=== PATIENT | male | born 1960 | race Caucasian/White ===

== ENCOUNTER → 2016-12-05 | Outpatient (CLI) | payer OTHER, MEDICAID | LOC: CIMAGING 14:04 | PROVIDERS: ATTEND Internal Medicine Cardiovascular Disease | DX: I48.91 Unspecified atrial fibrillation (principal); I10 Essential (primary) hypertension; Q23.1 Congenital insufficiency of aortic valve; Z79.899 Other long term (current) drug therapy | CPT/HCPCS: 71020-PO ==

== ENCOUNTER → 2016-12-12 | Outpatient (CLI) | payer OTHER, MEDICAID | LOC: BHFA 10:00 | PROVIDERS: ATTEND Internal Medicine Cardiovascular Disease | DX: Q23.1 Congenital insufficiency of aortic valve (principal); I10 Essential (primary) hypertension; I48.91 Unspecified atrial fibrillation ==

== ENCOUNTER 2017-12-12 18:28 | Inpatient (IN) | payer OTHER, MEDICAID ==
[2017-12-12] MEDS ORDERED: NS 1,000 ML IV ONE (18:38)
[2017-12-12] MEDS ORDERED: ACETAMINOPHEN 500 MG TAB PO ONE (18:38)
--- NOTE | 2017-12-12 18:43 | EDPHY ---
H & P Stated Complaint: L AXILLA PAIN Time Seen by Provider: 12/12/17 18:35 HPI/ROS: HPI CHIEF COMPLAINT: Left armpit pain. HISTORY OF PRESENT ILLNESS: This patient very pleasant 57-year-old male, history of AFib and WPW, he presents emergency room by EMS from his private residence. 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 He was sitting down the working on a puzzle, he then began to developed sharp stabbing left axillary pain. The pain does not go down his arm. He has no chest pain or shortness of breath. The pain is located to the left axillary region and left triceps region. He denies any chest pain or pleuritic pain or shortness of breath. No nausea vomiting or diarrhea. The pain was rather severe so his mammography technologist called 911. Upon arrival to the emergency room is resting comfortably no acute distress does complain of some mild left upper arm axillary pain. Sharp stabbing. Past Medical History: AFib, WPW, hiatal hernia surgery, cognitive decline Past Surgical History: Hiatal hernia Social History: Denies drugs alcohol tobacco products. Family History: Noncontributory ROS REVIEW OF SYSTEMS: A comprehensive 10 point review of systems is otherwise negative aside from elements mentioned in the history of present illness. Exam Constitutional appears well nontoxic, triage nursing summary reviewed, vital signs reviewed, awake/alert. Eyes normal conjunctivae and sclera, EOMI, PERRLA. HENT normal inspection, atraumatic, moist mucus membranes, no epistaxis, neck supple/ no meningismus, no raccoon eyes. Respiratory clear to auscultation bilaterally, normal breath sounds, no respiratory distress, no wheezing. Cardiovascular chest wall: Nontender palpation over the chest wall, left axillary region, nontender palpation, no significant lymphadenopathy, left tricep nontender palpation, the the rate normal, regular rhythm, no murmur, no edema, distal pulses normal. Gastrointestinal soft, non-tender, no rebound, no guarding, normal bowel sounds, no distension, no pulsatile mass. Genitourinary no CVA tenderness. Musculoskeletal left upper extremity good radial pulse, good cap refill, no midline vertebral tenderness, full range of motion, no calf swelling, no tenderness of extremities, no meningismus, good pulses, neurovascularly intact. Skin pink, warm, & dry, no rash, skin atraumatic. Neurologic awake, alert and oriented x 3, AAOx3, moves all 4 extremities equally, motor intact, sensory intact, CN II-XII intact, normal cerebellar, normal vision, normal speech. Psychiatric normal mood/affect. Heme/Lymph/Immune no lymphadenopathy. 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 I do not think this is acute coronary syndrome or cardiac presentation given his symptoms. He has no chest pain or shortness of breath he is complaining of sharp stabbing pain to his axilla and left upper arm. It seems to be more IV nerve issue versus musculoskeletal. Re-evaluation: EKG interpretation by me on record in [facility] system. Impression time of EKG 1842, sinus rhythm rate of 66 left anterior fascicular block present. LVH present. Very similar to previous EKG in morphology dated 09/11/2016 X-ray of the chest and left shoulder reviewed. This shows a proximal humerus bony abnormality also there appears to be a left upper lobe nodule that is abnormal. This needs further evaluation and workup for cancer. 2113: This patient has left upper extremity bony abnormality. Additionally possible pulmonary lesions with cardiomegaly. Patient be admitted to the hospitalist service spoke with Dr. Donovan who agrees to admit this patient for further evaluation of this bony abnormality. Source: Patient, EMS - Medical/Surgical History Hx Asthma: No Hx Chronic Respiratory Disease: No Hx Diabetes: No Hx Cardiac Disease: Yes Hx Renal Disease: No Hx Cirrhosis: No Hx Alcoholism: No Hx HIV/AIDS: No Hx Splenectomy or Spleen Trauma: No Other PMH: broderick parkinson white/rheumatic heart disease/spina bifida - Social History Smoking Status: Never smoked Constitutional: Initial Vital Signs Temperature (C) 36.6 C 12/12/17 18:30 Heart Rate 72 12/12/17 18:30 Respiratory Rate 16 12/12/17 18:30 Blood Pressure 161/97 H 12/12/17 18:30 O2 Sat (%) 96 12/12/17 18:30 O2 Delivery Mode Room Air Allergies/Adverse Reactions: No Known Allergies Allergy (Unverified 08/11/14 09:16) Home Medications: Medication Instructions Recorded Amiodarone HCl [Pacerone (*)] 200 mg PO DAILY 12/12/17 Aspirin [Aspirin 81mg (*)] 81 mg PO HS 12/12/17 Calcium Polycarbophil [FIBERCON] 625 mg PO DAILY 12/12/17 Cholecalciferol Vit D3 [Vitamin D3 1,000 units PO DAILY 12/12/17 (*)] Cyanocobalamin [Vitamin B12 (*)] 1,000 mcg PO DAILY 12/12/17 Docusate Sodium [Colace 100 MG (*)] 100 mg PO HS 12/12/17 Fluticasone Nasal [Flonase Nasal 1 sprays NASAL BID 12/12/17 [place] (RX)] Losartan Potassium [Cozaar 50 mg 50 mg PO HS 12/12/17 (*)] [place]-3 Fatty Acids [Fish Oil 1000 3,000 mg PO DAILY 12/12/17 mg (*)] Simethicone [Mylicon 80 mg (OTC)] 160 mg PO TIDMEAL 12/12/17 Tobramycin/Dexamethasone [Tobradex 1 lexie OP LIN 12/12/17 Eye Ointment] Medical Decision Making - Data Points Laboratory Results: Laboratory Results 12/12/17 18:40 12/12/17 18:40 Medications Given: Acetaminophen (Tylenol) 650 mg PO Q4HRS PRN PRN Reason: Pain, Mild/Fever, Can Take PO Stop: 06/10/18 22:22 Last Admin: 12/13/17 21:33 Dose: 650 mg Amiodarone HCl (Amiodarone Hcl) 200 mg PO DAILY [place] Stop: 06/11/18 16:14 Last Admin: 12/13/17 16:43 Dose: 200 mg Aspirin (Aspirin) 81 mg PO HS [place] Stop: 06/11/18 20:59 Last Admin: 12/13/17 21:33 Dose: 81 mg Docusate Sodium (Colace) 100 mg PO HS [place] Stop: 06/11/18 20:59 Last Admin: 12/13/17 21:33 Dose: 100 mg Fluticasone Propionate (Flonase Nasal [place]) 1 sprays [place] BID [place] Stop: 06/11/18 20:59 Last Admin: 12/13/17 21:34 Dose: 1 spray Losartan Potassium (Cozaar) 50 mg PO HS [facility] Stop: 06/11/18 20:59 Last Admin: 12/13/17 21:32 Dose: 50 mg Simethicone (Mylicon) 160 mg PO TIDMEAL [place] Stop: 06/11/18 17:59 Last Admin: 12/13/17 18:21 Dose: 160 mg Discontinued Medications Acetaminophen (Tylenol) 1,000 mg PO EDNOW ONE Stop: 12/12/17 18:39 Last Admin: 12/12/17 18:58 Dose: 1,000 mg Sodium Chloride (Ns) 1,000 mls @ 0 mls/hr IV EDNOW ONE; Wide Open PRN Reason: Protocol Stop: 12/12/17 18:39 Last Admin: 12/12/17 18:58 Dose: 1,000 mls Departure - Departure Disposition: [facility] Acute Clinical Impression: Bone mass, Cardiomegaly, Pulmonary nodules Condition: Good
--- NOTE | 2017-12-12 18:46 | CPEKG ---
Heart Rate: 66 RR Interval: 909 P-R Interval: 180 QRSD Interval: 116 QT Interval: 472 QTC Interval: 495 P [place]: 14 QRS [place]: -51 T Wave [place]: 67 EKG Severity - ABNORMAL ECG - EKG Impression: SINUS RHYTHM EKG Impression: LEFT ANTERIOR FASCICULAR BLOCK EKG Impression: PROBABLE LEFT VENTRICULAR HYPERTROPHY Electronically Signed By: Bruno Chen 12-Dec-2017 23:13:41
[2017-12-12 18:51] LABS: PLATELET COUNT 176 10^3/uL (150-400)
[2017-12-12 19:00] LABS: INR 1.17 (0.83-1.16); PROTIME(PATIENT) 15.1 SEC (12.0-15.0)
[2017-12-12 19:18] LABS: CREATINE KINASE 121 IU/L (0-224)
[2017-12-12] MEDS ORDERED: HYDROmorphONE/DILAUDID 2 MG/ML INJ IVP PRN (22:23)
[2017-12-12] MEDS ORDERED: HYDROmorphONE/DILAUDID 2 MG TAB PO PRN (22:23)
[2017-12-12] MEDS ORDERED: ONDANSETRON DISINTEGRATING 4 MG TAB PO PRN (22:23)
[2017-12-12] MEDS ORDERED: ONDANSETRON 4 MG/2 ML VIAL IVP PRN (22:23)
[2017-12-12] MEDS ORDERED: IOPAMIDOL (ISOVUE-300) 100 ML BTL ONE (22:31)
--- NOTE | 2017-12-13 01:16 | PDGENHP ---
History and Physical - Chief Complaint L arm pain - History of Present Illness 57 yo M w/ cognitive dysfunction, WPW, and AF presents with L arm pain. Patient presents with his caregiver. He was working today and began to notice sharp L axillary pain. As a result he presented to the ED. Work-up was notable for L humeral mass. Patient is being admitted for pain control and further work-up. At the time of my evaluation he is comfortable after receiving pain medication. He has no prior history of malignancy. History Information - Allergies/Home Medication List Allergies/Adverse Reactions: No Known Allergies Allergy (Unverified 08/11/14 09:16) Home Medications: Amiodarone HCl [Pacerone (*)] 200 mg PO DAILY 12/12/17 [Last Taken 12/12/17] Aspirin [Aspirin 81mg (*)] 81 mg PO HS 12/12/17 [Last Taken 12/11/17] Calcium Polycarbophil [FIBERCON] 625 mg PO DAILY 12/12/17 [Last Taken 12/12/17] Cholecalciferol Vit D3 [Vitamin D3 (*)] 1,000 units PO DAILY 12/12/17 [Last Taken 12/12/17] Cyanocobalamin [Vitamin B12 (*)] 1,000 mcg PO DAILY 12/12/17 [Last Taken ] Docusate Sodium [Colace 100 MG (*)] 100 mg PO HS 12/12/17 [Last Taken 12/11/17] Fluticasone Nasal [Flonase Nasal [place] (RX)] 1 sprays NASAL BID 12/12/17 [Last Taken 12/12/17] Losartan Potassium [Cozaar 50 mg (*)] 50 mg PO HS 12/12/17 [Last Taken 12/11/17] [place]-3 Fatty Acids [Fish Oil 1000 mg (*)] 3,000 mg PO DAILY 12/12/17 [Last Taken 12/12/17] Simethicone [Mylicon 80 mg (OTC)] 160 mg PO TIDMEAL 12/12/17 [Last Taken ] Tobramycin/Dexamethasone [Tobradex Eye Ointment] 1 lexie OP LIN 12/12/17 [Last Taken 12/07/16] I have personally reviewed and updated: family history, medical history - Past Medical History Additional medical history: Cognitivie dysfunction, ?developmental delay. WPW. AF. Bicuspic AV - Family History Additional family history: Caregiver reports hx of multiple cardiac problems in the family - Social History Smoking Status: Never smoked Review of Systems Review of Systems: ROS: 10pt was reviewed & negative except for what was stated in HPI & below Physical Exam Physical Exam: Temp Pulse Resp BP Pulse Ox 37.0 C 67 19 120/74 97 12/13/17 00:06 12/13/17 00:06 12/13/17 00:06 12/13/17 00:06 12/13/17 00:06 Constitutional: no apparent distress, appears nourished Eyes: PERRL, anicteric sclera Ears, Nose, Mouth, Throat: no oral mucosal ulcers Cardiovascular: regular rate and rhythym, systolic murmur Respiratory: no respiratory distress, clear to auscultation Gastrointestinal: normoactive bowel sounds, soft, non-tender abdomen Skin: warm, normal color Musculoskeletal: full muscle strength, no muscle tenderness Neurologic: AAOx3, sensation intact bilaterally Psychiatric: interacting appropriately, not anxious Lab Data & Imaging Review 12/12/17 18:40 12/12/17 18:40 WBC 5.31 10^3/uL (3.80-9.50) 12/12/17 18:40 RBC 4.35 10^6/uL (4.40-6.38) L 12/12/17 18:40 Hgb 14.3 g/dL (13.7-17.5) 12/12/17 18:40 Hct 42.4 % (40.0-51.0) 12/12/17 18:40 MCV 97.5 fL (81.5-99.8) 12/12/17 18:40 MCH 32.9 pg (27.9-34.1) 12/12/17 18:40 MCHC 33.7 g/dL (32.4-36.7) 12/12/17 18:40 RDW 12.3 % (11.5-15.2) 12/12/17 18:40 Plt Count 176 10^3/uL (150-400) 12/12/17 18:40 MPV 10.4 fL (8.7-11.7) 12/12/17 18:40 Neut % (Auto) 63.1 % (39.3-74.2) 12/12/17 18:40 Lymph % (Auto) 24.9 % (15.0-45.0) 12/12/17 18:40 [place] % (Auto) 10.7 % (4.5-13.0) 12/12/17 18:40 Eos % (Auto) 0.0 % (0.6-7.6) L 12/12/17 18:40 Baso % (Auto) 1.1 % (0.3-1.7) 12/12/17 18:40 Nucleat RBC Rel Count 0.0 % (0.0-0.2) 12/12/17 18:40 Absolute Neuts (auto) 3.35 10^3/uL (1.70-6.50) 12/12/17 18:40 Absolute Lymphs (auto) 1.32 10^3/uL (1.00-3.00) 12/12/17 18:40 Absolute Monos (auto) 0.57 10^3/uL (0.30-0.80) 12/12/17 18:40 Absolute Eos (auto) 0.00 10^3/uL (0.03-0.40) L 12/12/17 18:40 Absolute Basos (auto) 0.06 10^3/uL (0.02-0.10) 12/12/17 18:40 Absolute Nucleated RBC 0.00 10^3/uL (0-0.01) 12/12/17 18:40 Immature Gran % 0.2 % (0.0-1.1) 12/12/17 18:40 Immature Gran # 0.01 10^3/uL (0.00-0.10) 12/12/17 18:40 PT 15.1 SEC (12.0-15.0) H 12/12/17 18:40 INR 1.17 (0.83-1.16) H 12/12/17 18:40 APTT 31.1 SEC (23.0-38.0) 12/12/17 18:40 D-Dimer 0.27 ug/mLFEU (0.00-0.50) 12/12/17 18:40 Sodium 142 mEq/L (135-145) 12/12/17 18:40 Potassium 4.4 mEq/L (3.5-5.2) 12/12/17 18:40 Chloride 105 mEq/L (97-110) 12/12/17 18:40 Carbon Dioxide 28 mEq/l (22-31) 12/12/17 18:40 Anion Gap 9 mEq/L (8-16) 12/12/17 18:40 BUN 20 mg/dL (7-23) 12/12/17 18:40 Creatinine 1.1 mg/dL (0.7-1.3) 12/12/17 18:40 Estimated GFR > 60 12/12/17 18:40 Glucose 85 mg/dL (70-100) 12/12/17 18:40 Calcium 8.3 mg/dL (8.5-10.4) L 12/12/17 18:40 Magnesium 1.8 mg/dL (1.6-2.3) 12/12/17 18:40 Total Bilirubin 0.7 mg/dL (0.1-1.4) 12/12/17 18:40 Conjugated Bilirubin 0.5 mg/dL (0.0-0.5) 12/12/17 18:40 Unconjugated Bilirubin 0.2 mg/dL (0.0-1.1) 12/12/17 18:40 AST 28 IU/L (17-59) 12/12/17 18:40 ALT 27 IU/L (21-72) 12/12/17 18:40 Alkaline Phosphatase 94 IU/L (38-126) 12/12/17 18:40 Creatine Kinase 121 IU/L (0-224) 12/12/17 18:40 CK-MB (CK-2) Fraction 2.33 ng/mL (0.00-3.19) 12/12/17 18:40 Troponin I < 0.012 ng/mL (0.000-0.034) 12/12/17 18:40 NT-Pro-B Natriuret Pep 324 pg/mL (0-125) H 12/12/17 18:40 Total Protein 6.7 g/dL (6.3-8.2) 12/12/17 18:40 Albumin 3.9 g/dL (3.5-5.0) 12/12/17 18:40 Lipase 109 IU/L (23-300) 12/12/17 18:40 Imaging Review: Imaging Impressions Chest X-Ray 12/12/17 18:38 Impression: 1. Moderate cardiac enlargement, new, consider pericardial effusion. 2. Indeterminate cortical lesion proximal left humerus medially, possible exostosis versus chondrosarcoma. Recommend MRI examination for further evaluation. 3. A 12-mm nodule left upper lobe, new. Recommend chest CT to exclude metastatic or primary lung malignancy. Results called to Dr. Chen at 8:45 p.m. Shoulder X-Ray 12/12/17 18:43 Impression: No fracture or dislocation. Broad-based sessile exostosis arising from the medial aspect of the proximal left humerus has increased in size from 2014. Consider MRI examination without and with contrast for further characterization. A Follow-Up Required test result has been communicated via the [facility] Critical Result system on 12/12/2017 20:30, Message ID [id number]. Chest CT 12/12/17 22:26 Impression: 1. Negative CT examination of the chest for acute pulmonary thromboembolic disease. 2. No lung nodule identified. The previously identified nodular opacity in the left upper lobe appears to have either represented an external object or summation shadow. 3. Hiatal hernia with moderate distention of the stomach. 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 Plan: 1. L humeral lesion - Indeterminate cortical lesion proximal left humerus medially, possible exostosis versus chondrosarcoma. Patient presented with 1 day of pain at the site. Exam unremarkable. - MRI for further evaluation - Pain control - IR consulted for consideration of biopsy - Oncology consult in the morning 2. Cardiac enlargement - New compared to prior imaging per radiology. Patient does have history of bicuspid AV so heart failure is a consideration. Pleural effusion is also on the differential. Patient denies chest pain or SOB. - TTE for further evaluation 3. Possible lung nodule - Determined to be artifact after CT chest evaluation. 4. WPW, AF - On amiodarone as outpatient 5. Developmental delay, cognitive dysfunction - Lives with caregiver. Diet - Regular Code - Full Ppx - SCDs Dispo - Admit under inpatient status noting need for further evaluation and possible biopsy
--- NOTE | 2017-12-13 02:31 | PDMN ---
Medical Necessity Medical necessity: C/M review: est. > 2 MN LOS for eval and TX of acute and persistent left humeral lesion - indeterminate cortical lesion proximal to left humerus medially, possible exotosis versus chondrosarcoma, pain at site, cardiac enlargement - new compared to prior imaging per radiology requiring planned MRI of left upper extremity, echocardiogram, IR consult for consideration of biopsy, Oncology consult, ongoing pain management, comorbid WPW , atrial fibrillation, developmental delay, cognitive dysfunction per H/P.
[2017-12-13 05:08] LABS: PLATELET COUNT 171 10^3/uL (150-400)
[2017-12-13] MEDS: ACETAMINOPHEN 325 MG TAB PO PRN ×3 (08:13→21:33)
[2017-12-13] MEDS ORDERED: GADOBUTROL 10 ML VIAL IVP ONE (10:51)
--- NOTE | 2017-12-13 10:56 | ECHO ---
[email or web address] [address] [address] Main: [phone] Fax: [email or web address] Echocardiogram Name: NIELS CORBIN MR#: [id number] Study Date: 12/13/2017 Study Time: 09:45 AM Date of : 1960 Age: 57 year(s) Height: 157.5 cm (62 in.) Weight: 63.5 kg (140 lb.) BSA: 1.64 m2 Gender: Male Examination: Echo Indication: new cardiomegaly ?pericardial effusion Image Quality: Adequate Contrast: Requested by: Gideon Castro BP: 140 mmHg/84 mmHg Heart Rate: Rhythm: Indication: new cardiomegaly ?pericardial effusion Procedure Staff Farm Products Shipper: Jocelyn Huber [facility] Reading Physician: Kel Nava MD Requesting Provider: Conclusions: 1)Normal LV size and systolic function with a LVEF of 70% and normal wall motions. 2)Moderate to severe conentric LVH with diastolic dysfunction noted. 3)Moderate left atrial enlargement noted. 4)Bicupsid aortic valve with mild sclerosis but no . Mild to moderate AI noted. 5)Mild to moderate MR noted without MV prolapse. Abnormal mass of ventricular side of posterior MV leaflet. Could all be MAC but cannot exclude mass or clot. 6)Mild TR with estimated normal PA pressures. note: recommend LIZZ to better assess mass on posterior leaflet of MV. Measurements: Chambers Valvular Assessment AV/MV Valvular Assessment TV/PV Normal Normal Normal Name Value Range Name Value Range Name Value Range Ao Patricia (MM): 3.1 cm (2.2 cm-3.7 AV Vmax: 2.25 m/s (1 m/s-1.7 TR Vmax: 2.40 mm/s ( - ) cm) m/s) TR PGmax: 23 mmHg ( - ) IVSd (2D): 1.6 cm (0.6 cm-1.1 AV maxP mmHg ( - ) syst. PAP: 28 mmHg ( - ) cm) AV meanP mmHg ( - ) PV Vmax: 1.18 m/s (0.6 m/s-0.9 LVDd (2D): 4.3 cm (4.2 cm-5.9 LVOT Vmax: 1.21 m/s (0.7 m/s-1.1 m/s) cm) m/s) PV PGmax: 6 mmHg ( - ) LVDs (2D): 2.6 cm (2.1 cm-4 BHARGAV (Vmax): 2.2 cm2 ( - ) cm) BHARGAV (VTI): 2.3 cm ( - ) LVPWd (2D): 1.2 cm (0.6 cm-1 AR (PHT): 1090 ms ( - ) cm) MV E Vmax: 1.36 m/s ( - ) LVOTd 2.3 cm 2.3 cm mm MV A Vmax: 1.12 m/s ( - ) LVEF (BP): 70 % (>=55 %) MV E/A: 1.21 ( - ) RVDd(2D): 2.1 cm (1.9 cm-3.8 cmmm) Continued Measurements: Patient: NIELS CORBIN Study Date: 12/13/2017 Page 1 of 2 09:45 AM Chambers Valvular Assessment AV/MV Valvular Assessment TV/PV Name Value Name Value Name Value LADs: 4.6 cm MV DecTime: 303 m/s CVP (est.): 5 mmHg LADs Lon.2 cm MV E/E' Septal: 26.80 LA Area: 25.6 cm2 MV E/E' Lateral: 21.80 LA Volume: 74 ml AR Vmax: 3.56 cm/s LA Volume Index: 45.1 ml/m2 RA Area: 14.0 cm2 Additional Vessels Name Value Ao Ascendin.3 cm Findings: Left Ventricle: Normal size left ventricle. Moderate concentric LV hypertrophy. Normal global systolic LV function. EF is 70 %. No regional wall motion abnormality. Grade 1 diastolic dysfunction (abnormal relaxation). Right Ventricle: Normal size right ventricle. Normal RV function. Left Atrium: The left atrium is moderately dilated. Right Atrium: The right atrium is normal in size. Mitral Valve: There is mild thickening of the mitral valve leaflets. No mitral stenosis is present. Mild to moderate mitral regurgitation. There is a soft echo/mass? on the ventricular side of the posterior mitral leaflet. ?MAC? Thrombus? Tumor?. Aortic Valve: Mild aortic cusp calcification is noted. Mild to moderate aortic valve regurgitation. Mean aortic valve gradient 13. Trivial-mild aortic valve stenosis. Bicuspid aortic valve with raphe. Tricuspid Valve: The tricuspid valve is normal in appearance and function. Mild tricuspid regurgitation is present. The pulmonary artery pressure is normal. Pulmonic Valve: The pulmonic valve is normal in appearance and function. There is no pulmonic regurgitation seen. Aorta: The aorta is normal. Normal size aortic root measuring 3.1 cm. Normal size ascending aorta measuring 2.3 cm. Pericardium: No pericardial effusion. (No Signature Object) Patient: NIELS CORBIN Study Date: 12/13/2017 Page 2 of 2 09:45 AM [id number]
[2017-12-13] MEDS: AMIODARONE HCL 200 MG TAB PO SCH (16:43)
[2017-12-13] MEDS: SIMETHICONE 80 MG TAB CHEW PO SCH (18:21)
--- NOTE | 2017-12-13 19:15 | HOSPPROG ---
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 This was not compared with his prior outpatient echocardiograms as best I can tell is not at all clear to me that this is new although he has never been specifically assessed for a mass or told of a mass that we know of -chronic aortic and mitral valve regurgitations are currently moderate in severity but associated with some right atrial enlargement which is explaining the enlargement of cardiac silhouette seen on x-ray yesterday PLANS: -at this point he needs physical therapy and ice packs and some nonsteroidal anti-inflammatory for his shoulder and these can be completed as outpatient therapies -at this point there is nothing further to review in terms of his lungs as they appear healthy by CT scan -at this point the exostosis of his humerus likely does not need any further tension but I will review it with Orthopedics -regarding his mitral and aortic regurgitation he is clinically stable without any signs of heart failure, lightheadedness, chest pains and this can be followed with yearly echocardiograms -regarding the question of a mitral valve mass the 1st thing I would like to do is have the cardiology team here compare the current echocardiogram to his outpatient echocardiograms which were mostly recently done [address] Cunningham; if indeed there is a new or enlarging mass then this should be further evaluated either with LIZZ or cardiac MRI and I will review this with the signal repairer. In case we do end up with a LIZZ tomorrow I will make him NPO tonight I reviewed all the above in detail today with the patient and his guardian who was at the bedside. SUBJECTIVE: His shoulder pain is slightly better today than yesterday. It is a new pain that just started yesterday and clearly is at the lateral subacromial area, clearly aggravated by abduction and external rotation of the shoulder. 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 Prior to yesterday there has been no pain in his shoulder or arm and he does not have any pain along the shaft of the humerus. No shortness of breath, fevers, nausea or other symptoms OBJECTIVE Vitals reviewed: Stable without fever Exam: alert oriented skin warm dry color ok resps not labored lungs clear BSs heart regular abd soft nondistended nontender, bowel sounds present limbs he has full range of motion of the shoulder and has good strength against resistance in all rate motions of the shoulder, however there is pain at the subacromial area laterally with resisted abduction or external rotation of the shoulder consistent with rotator cuff tendinitis and bursitis iv site ok I reviewed the images from his chest x-ray, CT scan, MRI, and I have reviewed his echocardiogram report in detail with Dr. Kel Nava today. In terms of his x-ray I agree that there is enlargement of the right atrium but I do not see a left lung nodule that was mentioned by the radiologist. On reviewing his CT scan of the chest there was no finding by the radiologist of a left upper lobe nodule and I agree with that, there is I agree with radiologist some scarring in the lingula that looks old and likely benign with no associated mass. On the MRI scan of his arm there is an exostosis in the humerus but nothing that looks like a tumor. There is evidence of some tendinitis and bursitis at the rotator cuff position. On his echocardiogram he has mitral regurgitation and aortic insufficiency both of moderate degree and these are old last evaluated by echocardiogram a year ago in the clinic. However Dr. Nava notices a suspected mass on the mitral valve leaflet. The patient does not recall being told about the mass before though for some reason was referred for to Dr. Josiane Spain a year ago for possible surgery though surgery was not recommended by him at that time. The patient does not recall the details of that referral assessment. As best I can tell when I look back through today's report the current echocardiogram was not directly compared to the previous echocardiograms at least not mention that when the report. Objective: Vital Signs Temp Pulse Resp BP Pulse Ox 36.3 C 61 16 123/74 H 91 L 12/13/17 15:27 12/13/17 15:27 12/13/17 15:27 12/13/17 16:42 12/13/17 15:27 Laboratory Results 12/13/17 04:40 12/13/17 04:40 12/12/17 12/13/17 12/14/17 06:59 06:59 06:59 Intake Total 1000 400 Balance 1000 400 PT 15.1 SEC (12.0-15.0) H 12/12/17 18:40 INR 1.17 (0.83-1.16) H 12/12/17 18:40 - Time Spent With Patient Time Spent with Patient: greater than 35 minutes Time Spent with Patient: Greater than 35 minutes spent on this patients care, greater than 50% of time spent counseling, educating, and coordinating care regarding the above mentioned plan. ICD10 Worksheet Patient Problems: Problems Problem Status Onset Bone mass Acute Cardiomegaly Acute Pulmonary nodules Acute
[2017-12-13] MEDS ORDERED: DOCUSATE SODIUM 100 MG CAP PO SCH (21:00)
[2017-12-13] MEDS ORDERED: LOSARTAN POTASSIUM 50 MG TAB PO SCH (21:00)
[2017-12-13] MEDS ORDERED: ASPIRIN 81 MG CHEWABLE TAB PO SCH (21:00)
[2017-12-13] MEDS: FLUTICASONE NASAL 120 SPRAYS/16 GM MDI EACHNARE SCH (21:34)
[2017-12-14 07:30] VITALS: RESP 16; TEMP 97.6
[2017-12-14] MEDS: ACETAMINOPHEN 325 MG TAB PO PRN (08:00)
[2017-12-14] MEDS: SIMETHICONE 80 MG TAB CHEW PO SCH ×2 (08:01→12:33)
[2017-12-14] MEDS: AMIODARONE HCL 200 MG TAB PO SCH (08:01)
[2017-12-14] MEDS: FLUTICASONE NASAL 120 SPRAYS/16 GM MDI EACHNARE SCH (08:02)
[2017-12-14] MEDS ORDERED: NON-FORMULARY NEW DRUG (Calcium Polycarbophil [Fibercon] 625 MG) PO SCH (09:00)
[2017-12-14] MEDS ORDERED: CYANO/VITAMIN B12 1000 MCG TAB PO SCH (09:00)
[2017-12-14] MEDS ORDERED: PSYLLIUM METAMUCIL 1 PKT PO SCH (09:00)
[2017-12-14] MEDS ORDERED: CHOLECALCIFEROL VIT D3 1,000 UNITS TAB PO SCH (09:00)
[2017-12-14] MEDS ORDERED: OMEGA-3 FATTY ACIDS 1,000 MG CAP PO SCH (09:00)
--- NOTE | 2017-12-14 09:36 | ASMTCMCOM ---
CM Note CM Note Notes: Chart reviewed. Patient is a developmentally delayed man that lives with a caregiver in [place] and works as a business operations specialist in [employer] Javi is his caregiver [phone] and his sister Estrellita is his legal guardian [phone]. He came to the ER with pain in his left arm. He is undergoing diagnostic testing. CM to follow Date Signed: 12/14/2017 09:35 AM Electronically Signed By:Xi Shah RN
[2017-12-14] MEDS ORDERED: LEVOTHYROXINE 75 MCG TAB PO SCH (10:15)
--- NOTE | 2017-12-14 12:02 | SOAPPROG ---
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 He has an abnormal appearance to the posterior leaflet of the mitral valve with an echodense region in the immediate vicinity of the ventricular side of this valve. In reviewing his previous echocardiograms over the years similar findings have been noted dating back to 2008. I believe that these findings are related to either mitral annular calcification or potentially a large trabeculation immediately in this region. I do not think that this represents a pathologic process. He feels well with no ongoing symptoms specifically no fever, chills, sweats, anorexia or weight loss. As such , I do not think further workup is indicated at the present time. He does have an outpatient precision instrument maker and repairer that he sees on a regular basis, Dr. Cunningham. He will follow up with his regular precision instrument maker and repairer in the next several weeks. 12/14/17 12:01 Subjective: The patient was seen and examined. His outpatient records and previous echocardiograms were reviewed. We are consulted regarding an abnormal echocardiogram that indicated a possible mass adherent to the posterior leaflet of the mitral valve. The patient has a history of Ismael syndrome with an associated bicuspid aortic valve. He typically feels well and is active at his baseline. Despite having a bicuspid valve the valve itself is functioning well with no indication of stenosis or insufficiency based on historical echocardiograms. He had an echocardiogram done yesterday which was performed as part of a workup following a chest x-ray that indicated cardiomegaly. He states he feels well. He has not had any fever, chills or sweats. He has not had any weight loss. In reviewing previous echocardiogram similar findings have been noted over the years. He does have a echodense region immediately next to the ventricular side of the posterior leaflet of the mitral valve. This appears to be most consistent with either a heavy trabeculation or mitral annular calcification. Objective: Vital Signs Temp Pulse Resp BP Pulse Ox 36.4 C 58 L 16 137/82 H 90 L 12/14/17 07:26 12/14/17 07:26 12/14/17 07:26 12/14/17 07:26 12/14/17 07:26 Laboratory Results 12/13/17 04:40 12/13/17 04:40 12/13/17 12/14/17 12/15/17 05:59 05:59 05:59 Intake Total 1000 800 Balance 1000 800 PT 15.1 SEC (12.0-15.0) H 12/12/17 18:40 INR 1.17 (0.83-1.16) H 12/12/17 18:40 Physical Exam - Physical Exam General Appearance: WD/WN, no apparent distress Neck: non-tender, full range of motion Respiratory: chest non-tender, lungs clear, normal breath sounds Cardiac/Chest: regular rate, rhythm, systolic murmur (1/6 systolic ejection murmur), No edema, No gallop, No JVD Peripheral Pulses: 2+: carotid (R), carotid (L) Abdomen: normal bowel sounds, non-tender, soft Male Genitalia: deferred Rectal: deferred Neuro/Psych: alert, oriented x 3 ICD10 Worksheet Patient Problems: Problems Problem Status Onset Bone mass Acute Cardiomegaly Acute Pulmonary nodules Acute
[2017-12-14 12:12] VITALS: BP 145/87; PULSE 61; O2SAT 94
--- NOTE | 2017-12-14 12:31 | PDDCSUM ---
Discharge Summary Discharge Summary: DISCHARGE DIAGNOSES: -left shoulder rotator cuff tendinitis and subacromial bursitis, which is the cause of the pain for which he presented -exostosis of the left humerus, chronic and asymptomatic -chronic mitral regurgitation and aortic insufficiency, with severe calcification of valve leaflets -right atrial enlargement due to his mitral regurgitation CONSULTANTS: Dr. Agapito Barnes of cardiology PROCEDURES: CT scan of chest with no PE, no lung nodules, and no other concerning abnormalities MRI of left upper extremity showing a bursitis and tendinitis at the shoulder joint, and a benign exostosis of the humeral shaft Echocardiogram showing his known [id number] mitral and aortic regurgitation, initially read as a possible mass on the mitral valve leaflet by the reading aircraft mechanic armament but reviewed by data governance consultant and compared to his outpatient echocardiograms and felt not to be a mass but severe calcification HOSPITAL COURSE SUMMARY: This patient presented to the emergency room with left shoulder pain. In the end his symptom and examination are consistent with rotator cuff tendinitis and subacromial bursitis, and knees indeed are seen on his MRI of the shoulder. This probably occurred from lifting heavy create at work. He buses tables at a restaurant. Despite this abnormality, he has good strength and full range of motion in all directions with his shoulder. It is felt that this will respond well to physical therapy, ice, and ibuprofen. He is seen by physical therapy here and referred for outpatient physical therapy. He is instructed not to lift anything heavier than 3 lb for the moment and given a letter to take to work with that instruction. In the emergency room however the patient had had an x-ray of the arm with showing an abnormality of the left humeral shaft and there was concern about a tumor. This turns out to be an exostosis which is confirmed by the MRI. This is a benign condition that this not at the moment require any therapy as it is asymptomatic. The x-ray however also showed enlargement of the heart which is actually right atrial enlargement, and a question of a lung nodule. CT scan of the chest showed no evidence of any lung nodules so there is no concern for that. An echocardiogram was done to assess his heart and shows mitral and aortic regurgitation which are chronic and followed by Dr. Edson Cunningham. Essentially there is no change in the valve function or in the dimensions of the heart. There is no clinical sign of heart failure or any symptoms to suggest that. Initially the echocardiogram was read by a 1 aircraft mechanic armament as showing a question of a mitral valve leaflet mass. I had Dr. Agapito Barnes of Cardiology reviewed this echocardiogram and compared to the outpatient echocardiograms and the final conclusion is that this is most likely severe calcification of his valves in little changed from the past. No further evaluation was recommended at this time and there is no therapy necessary as he is asymptomatic. He is referred back to Dr. Cunningham his chronic outpatient aircraft mechanic armament to review these echocardiograms for his final opinion. PENDING TEST RESULTS: None MEDICATION CHANGES: Ibuprofen 40 mg 3 times daily with meals FOLLOW-UP PLAN: Outpatient physical therapy to be arranged He is to make an appoint with Dr. Edson Cunningham his aircraft mechanic armament to review his echocardiograms Greater than 35 minutes bedside and care coordination time today
--- NOTE | 2017-12-14 12:36 | ASMTLACE ---
ELIGIOE Length of stay for Answers: 2 days current admission Acuity / Level of Answers: Yes Care: Did the patient have an inpatient admission? # of Emergency department Answers: 1-2 visits in the last 6 months Score: 6 Date Signed: 12/14/2017 12:35 PM Electronically Signed By:Xi Shah RN
--- NOTE | 2017-12-14 12:37 | ASMTCMCOM ---
CM Note CM Note Notes: Patient has been medically cleared for discharge to home. No needs identified. CM available should needs arise. Date Signed: 12/14/2017 12:37 PM Electronically Signed By:Xi Shah RN
[2017-12-14] MEDS ORDERED: TOBRAMYCIN/DEXAMETH 3.5 GM OPHT.OINT OP SCH (16:01)
== END 2017-12-14 15:50 | disposition home or self-care (01) | DRG 556 ==
LOC: EDUNIT# → OBSVTOIN 21:12 → F1N 12-13 00:44
PROVIDERS: ADMIT Student in an Organized Health Care Education/Training Program; ATTEND Internal Medicine
DX: M70.912 Unspecified soft tissue disorder related to use, overuse and pressure, left shoulder (principal); M75.52 Bursitis of left shoulder; M89.9 Disorder of bone, unspecified; Q23.1 Congenital insufficiency of aortic valve; I08.0 Rheumatic disorders of both mitral and aortic valves; Q05.9 Spina bifida, unspecified
CPT/HCPCS: 97110-GP; 97161-GP; 97165-GO; A9585; G8987-GO-CI; G8988-GO-CI; G8989-GO-CI; Q9967

== ENCOUNTER 2018-04-29 00:26 | Observation (INO) | payer OTHER, MEDICAID ==
--- NOTE | 2018-04-29 00:38 | EDPHY ---
H & P Time Seen by Provider: 04/29/18 00:38 HPI/ROS: HPI CHIEF COMPLAINT: Coughing this evening HISTORY OF PRESENT ILLNESS: 57-year-old male, history of cognitive decline, somewhat of a poor historian, presents emergency room with a toggle press operator states that they came in emergency room tonight due to vigorous coughing. Around 7:00 p.m. The patient was coughing mainly clear white sputum. No blood. Additionally the coughing got worse this evening around 11:00 p.m.. No reported vomiting. Patient denies any chest pain or significant shortness of breath. Did complain of some abdominal pain earlier. Past Medical History: Past medical history significant for AFib, WPW, hiatal hernia, cognitive decline Past Surgical History: Hiatal hernia surgery Social History: Denies drugs alcohol tobacco. Has a toggle press operator who is at bedside. Family History: Noncontributory ROS REVIEW OF SYSTEMS: Limited review systems due to him being a poor historian. Exam Constitutional nontoxic appearing, triage nursing summary reviewed, vital signs reviewed, awake/alert. Eyes normal conjunctivae and sclera, EOMI, PERRLA. HENT normal inspection, atraumatic, moist mucus membranes, no epistaxis, neck supple/ no meningismus, no raccoon eyes. Respiratory clear to auscultation bilaterally, normal breath sounds, no respiratory distress, no wheezing. Cardiovascular rate normal, regular rhythm, no murmur, no edema, distal pulses normal. Gastrointestinal soft, non-tender, no rebound, no guarding, normal bowel sounds, no distension, no pulsatile mass. Genitourinary no CVA tenderness. Musculoskeletal no midline vertebral tenderness, full range of motion, no calf swelling, no tenderness of extremities, no meningismus, good pulses, neurovascularly intact. Skin pink, warm, & dry, no rash, skin atraumatic. Neurologic awake, alert and oriented x 3, AAOx3, moves all 4 extremities equally, motor intact, sensory intact, CN II-XII intact, normal cerebellar, normal vision, normal speech. Psychiatric normal mood/affect. Heme/Lymph/Immune no lymphadenopathy. Differential Diagnosis: Includes but is not limited to in a particular order, pneumonia, bronchitis, aspiration pneumonia, reflux, PE, ACS, CHF Medical Decision Making: Plan for this patient chest x-ray, IV establishment, EKG, labs. Re-evaluation: Patient's labs reviewed patient does have elevated D-dimer, also elevated white blood cell count. Will proceed with CT angiogram of the chest rule out PE, will proceed with CT abdomen pelvis with IV contrast rule out acute intra- abdominal process given white count and abdominal pain earlier. EKG interpretation by me on record in [facility] [facility] system. Impression time of EKG 1:10 a.m., sinus rhythm rate of 68 left anterior fascicular block present. No ST elevation. LVH present. When I compare this to his old EKG dated 2017 is very similar morphology. Initial point of care troponin was positive 0.09. I did send a serum lab troponin which is 0.096 CT scan angiogram chest and CT scan abdomen pelvis with IV contrast called to me by Dr. Carl shows no evidence of pulmonary embolism however does show mucous plugging, bronchial wall thickening, very large heart, urinary bladder diverticulum, most likely enteritis on CT. Liquid stool in the colon. 0302: Will admit the patient for elevated white blood cell count, CT scan that shows possible enteritis, bronchial wall thickening mucous plugging. Additionally has a positive troponin. It is unclear why he has a positive troponin. I will trend these. Will as the hospitalist service to admit him to PCU. He has very poor historian given his cognitive decline Final diagnosis elevated white blood cell count, positive troponin, CT scan concerning for enteritis. Plan for admission for observation today. EKG interpretation by me on record in [employer] system. Impression time of EKG 3:03 a.m., sinus rhythm rate of 75 left anterior fascicular block. No acute ST elevation. Source: Patient, EMS - Medical/Surgical History Hx Asthma: No Hx Chronic Respiratory Disease: No Hx Diabetes: No Hx Cardiac Disease: Yes Hx Renal Disease: No Hx Cirrhosis: No Hx Alcoholism: No Hx HIV/AIDS: No Hx Splenectomy or Spleen Trauma: No Other PMH: broderick parkinson white/rheumatic heart disease/spina bifida, o2 at nite, htn, - Social History Smoking Status: Never smoked Constitutional: Initial Vital Signs Heart Rate 69 04/29/18 00:48 Respiratory Rate 18 04/29/18 00:48 Blood Pressure 91/59 L 04/29/18 00:48 O2 Sat (%) 95 04/29/18 00:48 O2 Delivery Mode Nasal Cannula O2 (L/minute) 3 Allergies/Adverse Reactions: No Known Allergies Allergy (Unverified 04/29/18 00:45) Home Medications: Medication Instructions Recorded Amiodarone HCl [Pacerone (*)] 200 mg PO DAILY 12/12/17 Aspirin [Aspirin 81mg (*)] 81 mg PO HS 12/12/17 Cholecalciferol Vit D3 [Vitamin D3 1,000 units PO DAILY 12/12/17 (*)] Cyanocobalamin [Vitamin B12 (*)] 1,000 mcg PO HS 12/12/17 Docusate Sodium [Colace 100 MG (*)] 100 mg PO HS 12/12/17 Fluticasone Nasal [Flonase Nasal 1 sprays NASAL BID 12/12/17 [place]] Losartan Potassium [Cozaar 50 mg 50 mg PO HS 12/12/17 (*)] [place]-3 Fatty Acids [Fish Oil 1000 3,000 mg PO DAILY 12/12/17 mg (*)] Simethicone [Mylicon] 160 mg PO TIDMEAL 12/12/17 Tobramycin/Dexamethasone [Tobradex 1 lexie OP LIN 12/12/17 Eye Ointment] Levothyroxine [Synthroid 75 mcg 75 mcg PO DAILY 12/14/17 (*)] Benzonatate [Tessalon Pearles] 100 mg PO TID #12 cap 04/18/18 Acetaminophen [Tylenol ES 500 mg 500 - 1,000 mg PO Q6HRS PRN 04/29/18 (*)] Albuterol [Proventil Inhaler HFA 1 - 2 puffs IH Q2-4PRN PRN 04/29/18 (*)] Bacitracin/Polymyxin B Sulfate 1 lexie TP DAILY PRN 04/29/18 [Polysporin oint (*)] Calcium Carbonate [Tums 500MG (*)] 500 - 1,000 mg PO DAILY PRN 04/29/18 Dibucaine [Nupercainal] 1 lexie RC DAILY PRN 04/29/18 Fexofenadine HCl [Ruma Allergy] 180 mg PO DAILY PRN 04/29/18 Herbals/Supplements -Info Only 1 each PO DAILY 04/29/18 Ibuprofen [Motrin (*)] 200 - 400 mg PO Q4-6PRN PRN 04/29/18 Mineral Oil/Pet Hy-Phl [Aquaphor 1 lexie TP DAILY PRN 04/29/18 Ointment (*)] Polyethylene Glycol 3350 [Miralax 17 gm PO DAILY PRN 04/29/18 17 gm (*)] Ranitidine HCl [Zantac] 150 mg PO BIDMEAL PRN 04/29/18 Sodium Cl Nasal [[place] (*)] 2 spray NS 04/29/18 Sodium Fluoride [Fluoridex] 1 lexie DT 04/29/18 Trolamine Salicylate [Aspercreme] 1 lexie TP DAILY PRN 04/29/18 guaiFENesin/DEXTROMETHORPHAN 5 - 10 ml PO Q4HRS PRN 04/29/18 [Robitussin Dm Oral Liquid (*)] Medical Decision Making - Data Points Laboratory Results: Laboratory Results 04/29/18 00:35 04/29/18 00:35 Medications Given: Discontinued Medications Amiodarone HCl (Amiodarone Hcl) 200 mg PO DAILY [facility] Stop: 10/26/18 11:44 Last Admin: 04/30/18 08:05 Dose: 200 mg Aspirin (Aspirin) 81 mg PO [facility] Stop: 10/26/18 20:59 Last Admin: 04/29/18 20:44 Dose: 81 mg Benzonatate (Tessalon Pearles) 100 mg PO TID PRN PRN Reason: Cough, Mild Stop: 10/26/18 04:22 Last Admin: 04/29/18 20:43 Dose: 100 mg Docusate Sodium (Colace) 100 mg PO [facility] Stop: 10/26/18 20:59 Last Admin: 04/29/18 20:44 Dose: 100 mg Enoxaparin Sodium (Lovenox) 40 mg SC DAILY [facility] Stop: 10/26/18 08:59 Last Admin: 04/30/18 08:05 Dose: 40 mg Fluticasone Propionate (Flonase Nasal [place]) 1 sprays EACHNARE BID [facility] Stop: 10/26/18 20:59 Last Admin: 04/30/18 09:55 Dose: 1 spr Guaifenesin/Dextromethorphan (Robitussin Dm Oral Liquid) 10 ml PO Q4HRS PRN PRN Reason: Cough, Moderate Stop: 10/26/18 04:22 Last Admin: 04/30/18 09:54 Dose: 10 ml Sodium Chloride (Ns) 1,000 mls @ 0 mls/hr IV EDNOW ONE; Wide Open PRN Reason: Protocol Stop: 04/29/18 00:49 Last Admin: 04/29/18 01:13 Dose: 1,000 mls Sodium Chloride (Ns) 1,000 mls @ 0 mls/hr IV ONCE ONE PRN Reason: Wide Open Stop: 04/29/18 01:30 Last Admin: 04/29/18 01:33 Dose: 1,000 mls Sodium Chloride (Ns) 1,000 mls @ 0 mls/hr IV EDNOW ONE; Wide Open PRN Reason: Protocol Stop: 04/29/18 01:31 Last Admin: 04/29/18 02:02 Dose: Not Given Levothyroxine Sodium (Synthroid) 75 mcg PO DAILY [place] Stop: 10/27/18 08:59 Last Admin: 04/30/18 08:05 Dose: 75 mcg Losartan Potassium (Cozaar) 50 mg PO HS [facility] Stop: 10/26/18 20:59 Last Admin: 04/29/18 20:43 Dose: 50 mg Simethicone (Mylicon) 160 mg PO TIDMEAL [facility] Stop: 10/26/18 11:59 Last Admin: 04/30/18 08:05 Dose: 160 mg Sodium Chloride ([place]) 2 spray NS HS [facility] Stop: 10/26/18 20:59 Last Admin: 04/29/18 20:46 Dose: 2 sprays Point of Care Test Results: Chemistry 04/29/18 01:06 POC Troponin I 0.09 ng/mL H ng/mL (0.00-0.08) Departure - Departure Disposition: [facility] Inpatient Acute Clinical Impression: Enteritis, Coughing, Cardiomegaly, Elevated troponin Condition: Good
[2018-04-29] MEDS ORDERED: NS 1,000 ML IV ONE ×3 (00:48→01:30)
[2018-04-29 00:56] LABS: PLATELET COUNT 259 10^3/uL (150-400)
[2018-04-29 00:57] LABS: INR 1.15 (0.83-1.16); PROTIME(PATIENT) 14.9 SEC (12.0-15.0)
[2018-04-29 01:02] LABS: CREATINE KINASE 82 IU/L (0-224)
--- NOTE | 2018-04-29 01:12 | CPEKG ---
Heart Rate: 68 RR Interval: 882 P-R Interval: 180 QRSD Interval: 112 QT Interval: 500 QTC Interval: 532 P [place]: 34 QRS [place]: -57 T Wave [place]: 68 EKG Severity - ABNORMAL ECG - EKG Impression: SINUS RHYTHM EKG Impression: LEFT ANTERIOR FASCICULAR BLOCK EKG Impression: PROBABLE LEFT VENTRICULAR HYPERTROPHY Electronically Signed By: Bruno Chen 29-Apr-2018 06:16:08
[2018-04-29] MEDS ORDERED: IOPAMIDOL (ISOVUE 370) 100 ML BTL IV ONE (01:34)
--- NOTE | 2018-04-29 03:05 | CPEKG ---
Heart Rate: 75 RR Interval: 800 P-R Interval: 184 QRSD Interval: 120 QT Interval: 476 QTC Interval: 532 P [place]: 55 QRS [place]: -57 T Wave [place]: 65 EKG Severity - ABNORMAL ECG - EKG Impression: SINUS RHYTHM EKG Impression: LEFT ANTERIOR FASCICULAR BLOCK EKG Impression: PROBABLE LEFT VENTRICULAR HYPERTROPHY EKG Impression: LATERAL INFARCT, OLD Electronically Signed By: Bruno Chen 29-Apr-2018 06:16:08
[2018-04-29] MEDS ORDERED: ACETAMINOPHEN 325 MG TAB PO PRN (03:45)
[2018-04-29] MEDS ORDERED: ONDANSETRON DISINTEGRATING 4 MG TAB PO PRN (03:45)
[2018-04-29] MEDS ORDERED: ONDANSETRON 4 MG/2 ML VIAL IVP PRN (03:45)
--- NOTE | 2018-04-29 04:14 | PDGENHP ---
History and Physical - Chief Complaint Abdominal pain - History of Present Illness 57 yo M w/ developmental delay, HTN, hypothyroid, and multiple cardiac abnormalities (WPW, AF, congenital bicuspid AV, MVR) presents with abdominal pain. Patient and caregiver tell me that the patient has not been feeling well the last few weeks. He was diagnosed with pertussis 2 weeks ago. He has finished treatment for this with Augmentin and azithromycin. He continues to have cough paroxysms but these are lessening in frequency. Today he developed diarrhea and abdominal pain so he came into the ED. Once in the ED evaluation was notable for elevated WBC, indeterminate troponin, and CT scan c/w enteritis. Patient's symptoms improved significantly after 2 L IVF and a few large bowel movements. At the time of my evaluation patient has no complaints. His caregiver thinks he has diarrhea x4 this evening. Case discussed with ED physician Dr. Du, previous records reviewed including DC summary by Dr. Magdaleno dated 12/14/17. History Information - Allergies/Home Medication List Allergies/Adverse Reactions: No Known Allergies Allergy (Unverified 04/29/18 00:45) Home Medications: Amiodarone HCl [Pacerone (*)] 200 mg PO DAILY 12/12/17 [Last Taken 12/12/17] Aspirin [Aspirin 81mg (*)] 81 mg PO HS 12/12/17 [Last Taken 12/11/17] Calcium Polycarbophil [FIBERCON] 625 mg PO DAILY 12/12/17 [Last Taken 12/12/17] Cholecalciferol Vit D3 [Vitamin D3 (*)] 1,000 units PO DAILY 12/12/17 [Last Taken 12/12/17] Cyanocobalamin [Vitamin B12 (*)] 1,000 mcg PO DAILY 12/12/17 [Last Taken ] Docusate Sodium [Colace 100 MG (*)] 100 mg PO HS 12/12/17 [Last Taken 12/11/17] Fluticasone Nasal [Flonase Nasal [place]] 1 sprays NASAL BID 12/12/17 [Last Taken 12/12/17] Losartan Potassium [Cozaar 50 mg (*)] 50 mg PO HS 12/12/17 [Last Taken 12/11/17] [place]-3 Fatty Acids [Fish Oil 1000 mg (*)] 3,000 mg PO DAILY 12/12/17 [Last Taken 12/12/17] Simethicone [Mylicon] 160 mg PO TIDMEAL 12/12/17 [Last Taken 12/12/17] Tobramycin/Dexamethasone [Tobradex Eye Ointment] 1 lexie OP LIN 12/12/17 [Last Taken 12/07/16] Levothyroxine [Synthroid 75 mcg (*)] 75 mcg PO DAILY06 12/14/17 [Last Taken Unknown] I have personally reviewed and updated: family history, medical history - Past Medical History Additional medical history: Cognitivie dysfunction, ?developmental delay. WPW. AF. Bicuspic AV - Surgical History Reports: no pertinent surgical hx - Family History Additional family history: Caregiver reports hx of multiple cardiac problems in the family - Social History Smoking Status: Never smoked Review of Systems Review of Systems: ROS: 10pt was reviewed & negative except for what was stated in HPI & below Physical Exam Physical Exam: Temp Pulse Resp BP Pulse Ox 72 22 H 111/67 92 04/29/18 03:07 04/29/18 03:07 04/29/18 03:07 04/29/18 03:07 O2 (L/minute) 2 Constitutional: no apparent distress, not in pain Eyes: PERRL, anicteric sclera Ears, Nose, Mouth, Throat: moist mucous membranes, no oral mucosal ulcers Cardiovascular: regular rate and rhythym, systolic murmur Respiratory: no respiratory distress, clear to auscultation Gastrointestinal: normoactive bowel sounds, tenderness (Mild, diffuse) Skin: warm, normal color Musculoskeletal: full muscle strength, no muscle tenderness Neurologic: AAOx3, CN II-XII Intact Psychiatric: interacting appropriately, not anxious Lab Data & Imaging Review 04/29/18 00:35 04/29/18 00:35 WBC 20.82 10^3/uL (3.80-9.50) H 04/29/18 00:35 RBC 4.53 10^6/uL (4.40-6.38) 04/29/18 00:35 Hgb 14.8 g/dL (13.7-17.5) 04/29/18 00:35 Hct 45.4 % (40.0-51.0) 04/29/18 00:35 MCV 100.2 fL (81.5-99.8) H 04/29/18 00:35 MCH 32.7 pg (27.9-34.1) 04/29/18 00:35 MCHC 32.6 g/dL (32.4-36.7) 04/29/18 00:35 RDW 12.4 % (11.5-15.2) 04/29/18 00:35 Plt Count 259 10^3/uL (150-400) 04/29/18 00:35 MPV 9.3 fL (8.7-11.7) 04/29/18 00:35 Neut % (Auto) Not Reported 04/29/18 00:35 Lymph % (Auto) Not Reported 04/29/18 00:35 Schleicher % (Auto) Not Reported 04/29/18 00:35 Eos % (Auto) Not Reported 04/29/18 00:35 Baso % (Auto) Not Reported 04/29/18 00:35 Nucleat RBC Rel Count Not Reported 04/29/18 00:35 Absolute Neuts (auto) Not Reported 04/29/18 00:35 Absolute Lymphs (auto) Not Reported 04/29/18 00:35 Absolute Monos (auto) Not Reported 04/29/18 00:35 Absolute Eos (auto) Not Reported 04/29/18 00:35 Absolute Basos (auto) Not Reported 04/29/18 00:35 Absolute Nucleated RBC Not Reported 04/29/18 00:35 Immature Gran % Not Reported 04/29/18 00:35 Seg Neutrophils % 95.0 % 04/29/18 00:35 Band Neutrophils % 0 % 04/29/18 00:35 Lymphocytes % 2.0 % 04/29/18 00:35 Monocytes % 2.0 % 04/29/18 00:35 Eosinophils % 0 % 04/29/18 00:35 Basophils % 1.0 % 04/29/18 00:35 Metamyelocytes % 0 % 04/29/18 00:35 Myelocytes % 0 % 04/29/18 00:35 Promyelocytes % 0 % 04/29/18 00:35 Blast Cells % 0 % 04/29/18 00:35 Immature Gran # Not Reported 04/29/18 00:35 Absolute Seg Neuts 19.78 10^/uL (1.70-6.50) H 04/29/18 00:35 Absolute Band Neuts 0.00 10^3/uL (0.00-0.70) 08 00:35 Absolute Lymphocytes 0.42 10^3/uL (1.00-3.00) L 04/29/18 00:35 Absolute Monocytes 0.42 10^3/uL (0.30-0.80) 04/29/18 00:35 Absolute Eosinophils 0.00 10^3/uL (0.03-0.40) L 04/29/18 00:35 Absolute Basophils 0.21 10^3/uL (0.02-0.10) H 04/29/18 00:35 Absolute Metamyelocyte 0.00 10^3/mL (0.00-0.00) 04/29/18 00:35 Absolute Myelocytes 0.00 10^3/mL (0.00-0.00) 04/29/18 00:35 Absolute Promyelocytes 0.00 10^3/uL (0.00-0.00) 04/29/18 00:35 Absolute Plasma Cells 0.00 10^3/uL (0.00-0.00) 04/29/18 00:35 Nucleated RBCs 0 /100 WBC (0-0) 04/29/18 00:35 Absolute Blast Cells 0.00 10^3/uL (0.00-0.00) 04/29/18 00:35 Plasma Cells % 0 % 04/29/18 00:35 Platelet Estimate ADEQUATE (ADEQ) 04/29/18 00:35 Echinocytes 1+ H 04/29/18 00:35 PT 14.9 SEC (12.0-15.0) 04/29/18 00:35 INR 1.15 (0.83-1.16) 04/29/18 00:35 APTT 25.2 SEC (23.0-38.0) 04/29/18 00:35 D-Dimer 2.12 ug/mLFEU (0.00-0.50) H 04/29/18 00:35 Sodium 142 mEq/L (135-145) 04/29/18 00:35 Potassium 4.6 mEq/L (3.3-5.0) 04/29/18 00:35 Chloride 106 mEq/L (97-110) 04/29/18 00:35 Carbon Dioxide 21 mEq/l (22-31) L 04/29/18 00:35 Anion Gap 15 mEq/L (8-16) 04/29/18 00:35 BUN 33 mg/dL (7-23) H 04/29/18 00:35 Creatinine 1.2 mg/dL (0.7-1.3) 04/29/18 00:35 Estimated GFR > 60 04/29/18 00:35 Glucose 182 mg/dL (70-100) H 04/29/18 00:35 Calcium 8.9 mg/dL (8.5-10.4) 04/29/18 00:35 Magnesium 2.2 mg/dL (1.6-2.3) 04/29/18 00:35 Total Bilirubin 1.0 mg/dL (0.1-1.4) 04/29/18 00:35 Conjugated Bilirubin 0.6 mg/dL (0.0-0.5) H 04/29/18 00:35 Unconjugated Bilirubin 0.4 mg/dL (0.0-1.1) 04/29/18 00:35 AST 24 IU/L (17-59) 04/29/18 00:35 ALT 25 IU/L (21-72) 04/29/18 00:35 Alkaline Phosphatase 194 IU/L (38-126) H 04/29/18 00:35 Creatine Kinase 82 IU/L (0-224) 04/29/18 00:35 CK-MB (CK-2) Fraction 2.64 ng/mL (0.00-4.55) 04/29/18 00:35 POC Troponin I 0.09 ng/mL (0.00-0.08) H 04/29/18 01:06 Troponin I 0.111 ng/mL (0.000-0.034) H 04/29/18 02:45 NT-Pro-B Natriuret Pep 580 pg/mL (0-125) H 04/29/18 00:35 Total Protein 6.5 g/dL (6.3-8.2) 04/29/18 00:35 Albumin 3.7 g/dL (3.5-5.0) 04/29/18 00:35 Lipase 173 IU/L (23-300) 04/29/18 00:35 Imaging Review: CTA Chest, CT Abd Prelim: chest-no PE basilar bronchial wall thickening and mucus plugging CM s CHF abd- gastroenteritis? chronically obstructed large urinary bladder called [place] at 2am Visualized and Interpreted Chest x-ray results: Yes Chest X-Ray results: no infiltrate Visualized and Interpreted EKG results: Yes EKG Interpretation: Positive for: normal sinsus rhythm, Q waves (I, AVL) Assessment & Plan Assessment: 57 yo M w/ developmental delay, HTN, hypothyroid, and multiple cardiac abnormalities (WPW, AF, congenital bicuspid AV, MVR) presents with enteritis after recent bout of pertussis. Plan: 1. Abdominal pain - Abdominal CT concerning for enteritis; patient with diarrhea x4 this evening. Noting recent antibiotic use, leukocytosis, and abdominal cramping, C. Diff is a concern. - GI PCR ordered - S/p 2 L IVF 2. Pertussis - Recently diagnosed and treated appropriate with azithromycin. Patient continues to have cough paroxysms but these are beginning to lessen in severity. - Robitussin and Tessalon Perles PRN 3. Indeterminate troponin - Troponin 0.11 on admission; patient denies chest pain. I suspect this represents demand ischemia from acute illness but patient may require further risk stratification inpatient vs. outpatient pending work- up. - Admit to PCU for observation - Monitor on telemetry - Trend cardiac enzymes 4. Hx WPW, AF - In NSR currently, on amiodarone; needs med reconciliation. 5. Bicuspid AV, MVR - Followed by Dr. Cunningham. 6. HTN - Needs med reconciliation. 7. Hx developmental delay, cognitive dysfunction - Caregiver at bedside Diet - Regular Code - Full Ppx- LMWH Dispo - Admit under observation status
[2018-04-29] MEDS ORDERED: BENZONATATE 100 MG CAP PO PRN (04:23)
[2018-04-29 06:25] LABS: PLATELET COUNT 177 10^3/uL (150-400)
[2018-04-29] MEDS: ENOXAPARIN 40 MG/0.4 ML SYR SC SCH (09:11)
[2018-04-29] MEDS ORDERED: D50W 25 GM/50 ML SYR IVP PRN (11:24)
[2018-04-29] MEDS ORDERED: CALCIUM CARBONATE 500 MG CHEWABLE TAB PO PRN (11:41)
[2018-04-29] MEDS ORDERED: ALBUTEROL 60 PUFFS/8 GM MDI IH PRN (11:41)
[2018-04-29] MEDS ORDERED: BACITRACIN/POLYMYXIN B SULFATE 28.3 GM TUBE TP PRN (11:41)
[2018-04-29] MEDS ORDERED: PET HY PHL TP PRN (11:41)
[2018-04-29] MEDS ORDERED: TROLAMINE SALICYLATE 85 GM CRTUBE TP PRN (11:41)
[2018-04-29] MEDS ORDERED: MINERAL OIL TP PRN (11:41)
[2018-04-29] MEDS ORDERED: POLYETHYLENE GLYCOL 3350 17 GM PKT PO PRN (11:41)
[2018-04-29] MEDS ORDERED: ACETAMINOPHEN 500 MG TAB PO PRN (11:41)
[2018-04-29] MEDS ORDERED: INSULIN LISPRO 100 UNIT/ML SC SCH (12:00)
[2018-04-29] MEDS ORDERED: FAMOTIDINE 20 MG TAB PO PRN (12:00)
--- NOTE | 2018-04-29 12:35 | ASMTCMCOM ---
CM Note CM Note Notes: 04/29/2018 Case Management Note Met w/pt, caregiver Javi [phone], respite caregiver Jarrod (Javi's father) and roomate Arturo. Per pt and Javi, Estrellita Roe (pt sister) is Guardian and has MDPOA. Estrellita can be reached at [phone]. Pt lives with Javi and Arturo. Pt is enrolled in the [facility] program. Kate Lynne is the program professional [phone]. Chrystal Brar RN follows pt and can be reached at [phone]. When pt is discharged please fax info to Chrystal at [phone] and have RN call report to Chrystal's cell. Pt has used [facility] in the past. Chrystal prefers using [facility] if pt requires home PT. PT eval pending. Pt PCP is Dr. Sujatha Evans. Case Management d/c poc: home resuming services provided by [facility] Case Management to follow. Date Signed: 04/29/2018 12:35 PM Electronically Signed By:Dyana Knight RN
[2018-04-29] MEDS: SIMETHICONE 80 MG TAB CHEW PO SCH ×2 (13:29→18:11)
[2018-04-29] MEDS: AMIODARONE HCL 200 MG TAB PO SCH (13:29)
--- NOTE | 2018-04-29 16:27 | HOSPPROG ---
Hospitalist Progress Note Assessment/Plan: 57 yo M w/ developmental delay, HTN, hypothyroid, and multiple cardiac abnormalities (WPW, AF, congenital bicuspid AV, MVR) presents with enteritis after recent bout of pertussis. #Diarrhea: Started on day of admission. With leukocytosis, recent antibiotics concern for C diff colitis (although CT didn't show colonic inflammation). GI PCR pending. Hold on anti-diarrheals. #Abdominal pain: Abdominal CT shows gastroenteritis. S/p 3L IVF. GI PCR pending as above. IV anti-emetics PRN. #Pertussis: Recently diagnosed and treated appropriate with azithromycin. Patient continues to have cough paroxysms but these are beginning to lessen in severity. No contact precautions necessary. Robitussin and Tessalon Perles PRN #Indeterminate troponin: Troponin peak 0.11; patient denies chest pain. I suspect this represents demand ischemia from acute illness. Recommend risk stratification as outpatient. #Deconditioning: Related to recent illnesses. PT/OT consulted. #Hx WPW, A: In NSR currently, continue amiodarone. #Bicuspid AV, MVR: Followed by Dr. Cunningham. #HTN: Continue home meds. #Hx developmental delay, cognitive dysfunction - Caregiver at bedside Diet - Regular Code - Full Ppx- LMWH Dispo - Continue admission for management of abdominal pain/nausea with IVF and IV anti-emetics. Plan to discharge in AM if symptoms improved. Subjective: Feeling much better this morning. Wants to try eating/drinking. Abdominal pain almost resolved. No fevers Objective: Vital Signs Temp Pulse Resp BP Pulse Ox 36.6 C 69 14 112/67 94 04/29/18 15:53 04/29/18 15:53 04/29/18 15:53 04/29/18 15:53 04/29/18 15:53 Laboratory Results 04/29/18 05:19 04/29/18 05:19 04/28/18 04/29/18 04/30/18 05:59 05:59 05:59 Intake Total 2150 Balance 2150 PT 14.9 SEC (12.0-15.0) 04/29/18 00:35 INR 1.15 (0.83-1.16) 04/29/18 00:35 - Physical Exam Constitutional: no apparent distress, appears nourished, not in pain Eyes: PERRL, anicteric sclera, other (dysconjugate gaze) Ears, Nose, Mouth, Throat: hearing normal, ears appear normal, no oral mucosal ulcers, dry mucous membranes Cardiovascular: regular rate and rhythym, no murmur, rub, or gallop Respiratory: no respiratory distress, no rales or rhonchi, clear to auscultation Gastrointestinal: normoactive bowel sounds, soft, non-tender abdomen, no palpable masses, tenderness (diffuse tenderness without gaurding) Skin: warm, no rashes or abrasions, no fluctuance, no induration Musculoskeletal: full muscle strength, no muscle tenderness, normal joint ROM Neurologic: No weakness Psychiatric: interacting appropriately, not anxious, not encephalopathic, thought process linear ICD10 Worksheet Patient Problems: Problems Problem Status Onset Cardiomegaly Acute Coughing Acute Elevated troponin Acute Enteritis Acute Bone mass Acute Pulmonary nodules Acute
[2018-04-29] MEDS: GUAIFENESIN/DM 10 ML UDCUP PO PRN (18:11)
[2018-04-29] MEDS: FLUTICASONE NASAL 120 SPRAYS/16 GM MDI EACHNARE SCH (20:44)
[2018-04-29] MEDS ORDERED: ASPIRIN 81 MG CHEWABLE TAB PO SCH (21:00)
[2018-04-29] MEDS ORDERED: SODIUM CL NASAL 45 ML BTL NS SCH (21:00)
[2018-04-29] MEDS ORDERED: LOSARTAN POTASSIUM 50 MG TAB PO SCH (21:00)
[2018-04-29] MEDS ORDERED: DOCUSATE SODIUM 100 MG CAP PO SCH (21:00)
[2018-04-30 07:25] VITALS: BP 161/94
[2018-04-30] MEDS: SIMETHICONE 80 MG TAB CHEW PO SCH (08:05)
[2018-04-30] MEDS: AMIODARONE HCL 200 MG TAB PO SCH (08:05)
[2018-04-30] MEDS: ENOXAPARIN 40 MG/0.4 ML SYR SC SCH (08:05)
[2018-04-30] MEDS ORDERED: CETIRIZINE 10 MG TAB PO PRN (09:00)
[2018-04-30] MEDS ORDERED: LEVOTHYROXINE 75 MCG TAB PO SCH (09:00)
[2018-04-30] MEDS: GUAIFENESIN/DM 10 ML UDCUP PO PRN (09:54)
[2018-04-30] MEDS: FLUTICASONE NASAL 120 SPRAYS/16 GM MDI EACHNARE SCH (09:55)
--- NOTE | 2018-04-30 11:16 | PDIAF ---
- Diagnosis Code Status: Full Code - Medication Management Discharge Medications: Medications to Continue on Transfer Amiodarone HCl [Pacerone (*)] 200 mg PO DAILY 12/12/17 [Last Taken 04/28/18] Aspirin [Aspirin 81mg (*)] 81 mg PO HS 12/12/17 [Last Taken 04/28/18] Cholecalciferol Vit D3 [Vitamin D3 (*)] 1,000 units PO DAILY 12/12/17 [Last Taken 04/28/18] Cyanocobalamin [Vitamin B12 (*)] 1,000 mcg PO HS 12/12/17 [Last Taken 04/28/18] Docusate Sodium [Colace 100 MG (*)] 100 mg PO HS 12/12/17 [Last Taken 04/28/18] Fluticasone Nasal [Flonase Nasal [place]] 1 sprays NASAL BID 12/12/17 [Last Taken 04/28/18 21:00] Losartan Potassium [Cozaar 50 mg (*)] 50 mg PO HS 12/12/17 [Last Taken 04/28/18] [place]-3 Fatty Acids [Fish Oil 1000 mg (*)] 3,000 mg PO DAILY 12/12/17 [Last Taken 04/28/18] Simethicone [Mylicon] 160 mg PO TIDMEAL 12/12/17 [Last Taken 04/28/18 18:00] Tobramycin/Dexamethasone [Tobradex Eye Ointment] 1 lexie OP LIN 12/12/17 [Last Taken 04/26/18] Levothyroxine [Synthroid 75 mcg (*)] 75 mcg PO DAILY 12/14/17 [Last Taken ] Benzonatate [Tessalon [place]] 100 mg PO TID #12 cap 04/18/18 [Last Taken 21:00] Acetaminophen [Tylenol ES 500 mg (*)] 500 - 1,000 mg PO Q6HRS PRN 04/29/18 [ Last Taken 04/23/18] Albuterol [Proventil Inhaler HFA (*)] 1 - 2 puffs IH Q2-4PRN PRN 04/29/18 [Last Taken 04/28/18 20:00] Bacitracin/Polymyxin B Sulfate [Polysporin oint (*)] 1 lexie TP DAILY PRN [Last Taken Unknown] Calcium Carbonate [Tums 500MG (*)] 500 - 1,000 mg PO DAILY PRN 04/29/18 [Last Taken Unknown] Dibucaine [Nupercainal] 1 lexie RC DAILY PRN 04/29/18 [Last Taken Unknown] Fexofenadine HCl [Ruma Allergy] 180 mg PO DAILY PRN 04/29/18 [Last Taken ] Herbals/Supplements -Info Only 1 each PO DAILY 04/29/18 [Last Taken Unknown] Ibuprofen [Motrin (*)] 200 - 400 mg PO Q4-6PRN PRN 04/29/18 [Last Taken Unknown] Mineral Oil/Pet Hy-Phl [Aquaphor Ointment (*)] 1 lexie TP DAILY PRN 04/29/18 [ Last Taken 04/28/18] Polyethylene Glycol 3350 [Miralax 17 gm (*)] 17 gm PO DAILY PRN 04/29/18 [Last Taken Unknown] Ranitidine HCl [Zantac] 150 mg PO BIDMEAL PRN 04/29/18 [Last Taken Unknown] Sodium Cl Nasal [[place] (*)] 2 spray NS HS 04/29/18 [Last Taken 04/28/18] Sodium Fluoride [Fluoridex] 1 lexie DT HS 04/29/18 [Last Taken 04/28/18] Trolamine Salicylate [Aspercreme] 1 lexie TP DAILY PRN 04/29/18 [Last Taken Unknown] guaiFENesin/DEXTROMETHORPHAN [Robitussin Dm Oral Liquid (*)] 5 - 10 ml PO Q4HRS PRN 04/29/18 [Last Taken 04/28/18] Discharge Medications: Refer to the Discharge Home Medication list for PRN reason. - Orders Services needed: Registered Nurse, Physical Therapy Additional Instructions: 1. Continue taking your medications as prescribed. We did not make any medication changes this visit. 2. If you develop worsening diarrhea, I recommend getting this evaluated by your PCP or in urgent care. 3. Stay hydrated! - Follow Up Care Current Providers and Referrals: Patient,NotPresent [Unknown] - As per Instructions
--- NOTE | 2018-04-30 11:53 | PDIAF ---
- Diagnosis Code Status: Full Code - Medication Management Discharge Medications: Medications to Continue on Transfer Amiodarone HCl [Pacerone (*)] 200 mg PO DAILY 12/12/17 [Last Taken 04/28/18] Aspirin [Aspirin 81mg (*)] 81 mg PO HS 12/12/17 [Last Taken 04/28/18] Cholecalciferol Vit D3 [Vitamin D3 (*)] 1,000 units PO DAILY 12/12/17 [Last Taken 04/28/18] Cyanocobalamin [Vitamin B12 (*)] 1,000 mcg PO HS 12/12/17 [Last Taken 04/28/18] Docusate Sodium [Colace 100 MG (*)] 100 mg PO HS 12/12/17 [Last Taken 04/28/18] Fluticasone Nasal [Flonase Nasal [place]] 1 sprays NASAL BID 12/12/17 [Last Taken 04/28/18 21:00] Losartan Potassium [Cozaar 50 mg (*)] 50 mg PO HS 12/12/17 [Last Taken 04/28/18] [place]-3 Fatty Acids [Fish Oil 1000 mg (*)] 3,000 mg PO DAILY 12/12/17 [Last Taken 04/28/18] Simethicone [Mylicon] 160 mg PO TIDMEAL 12/12/17 [Last Taken 04/28/18 18:00] Tobramycin/Dexamethasone [Tobradex Eye Ointment] 1 lexie OP LIN 12/12/17 [Last Taken 04/26/18] Levothyroxine [Synthroid 75 mcg (*)] 75 mcg PO DAILY 12/14/17 [Last Taken ] Benzonatate [Tessalon Pear[place]] 100 mg PO TID #12 cap 04/18/18 [Last Taken 21:00] Acetaminophen [Tylenol ES 500 mg (*)] 500 - 1,000 mg PO Q6HRS PRN 04/29/18 [ Last Taken 04/23/18] Albuterol [Proventil Inhaler HFA (*)] 1 - 2 puffs IH Q2-4PRN PRN 04/29/18 [Last Taken 04/28/18 20:00] Bacitracin/Polymyxin B Sulfate [Polysporin oint (*)] 1 lexie TP DAILY PRN [Last Taken Unknown] Calcium Carbonate [Tums 500MG (*)] 500 - 1,000 mg PO DAILY PRN 04/29/18 [Last Taken Unknown] Dibucaine [Nupercainal] 1 lexie RC DAILY PRN 04/29/18 [Last Taken Unknown] Fexofenadine HCl [Ruma Allergy] 180 mg PO DAILY PRN 04/29/18 [Last Taken ] Herbals/Supplements -Info Only 1 each PO DAILY 04/29/18 [Last Taken Unknown] Ibuprofen [Motrin (*)] 200 - 400 mg PO Q4-6PRN PRN 04/29/18 [Last Taken Unknown] Mineral Oil/Pet Hy-Phl [Aquaphor Ointment (*)] 1 lexie TP DAILY PRN 04/29/18 [ Last Taken 04/28/18] Polyethylene Glycol 3350 [Miralax 17 gm (*)] 17 gm PO DAILY PRN 04/29/18 [Last Taken Unknown] Ranitidine HCl [Zantac] 150 mg PO BIDMEAL PRN 04/29/18 [Last Taken Unknown] Sodium Cl Nasal [[place] (*)] 2 spray NS HS 04/29/18 [Last Taken 04/28/18] Sodium Fluoride [Fluoridex] 1 lexie DT HS 04/29/18 [Last Taken 04/28/18] Trolamine Salicylate [Aspercreme] 1 lexie TP DAILY PRN 04/29/18 [Last Taken Unknown] guaiFENesin/DEXTROMETHORPHAN [Robitussin Dm Oral Liquid (*)] 5 - 10 ml PO Q4HRS PRN 04/29/18 [Last Taken 04/28/18] Discharge Medications: Refer to the Discharge Home Medication list for PRN reason. - Orders Services needed: Home Care, Registered Nurse, Physical Therapy Home Care Face to Face: I certify that this patient was under my care and that I had the required [id number] encounter meeting the encounter requirements on the discharge day. My findings support the fact that the patient is homebound as defined in Home Care Face to Face Continued: CMS Chapter 7 Medicare Benefits Manual 30.1.1 , The condition of the patient is such that there exists a normal inability to leave home and consequently, leaving home would require a considerable and taxing effort. Additional Instructions: 1. Continue taking your medications as prescribed. We did not make any medication changes this visit. 2. If you develop worsening diarrhea, I recommend getting this evaluated by your PCP or in urgent care. 3. Stay hydrated! - Follow Up Care Current Providers and Referrals: Patient,NotPresent [Unknown] - As per Instructions
--- NOTE | 2018-04-30 12:31 | ASMTDCNOTE ---
Case Management Discharge Discharge Order Complete? Answers: Yes Patient to Obtain Answers: Other Notes: primary care nurse Javi Medications Transportation Arranged Answers: Other Notes: caregiver Javi Faxed Final Orders Answers: Yes Agency/Facility Transfer Answers: Yes Report Printed & Faxed to Receiving Agency Discharge Comments Notes: 04/30/2018 Case Management Note [facility] to provide PT and RN. Notified Javi and Tanner. Javi to transport Tanner home. Faxed final orders to Chrystal Brar RN. Date Signed: 04/30/2018 12:31 PM Electronically Signed By:Dyana Knight RN
--- NOTE | 2018-04-30 12:34 | ASMTLACE ---
LACE Length of stay for Answers: 1 day current admission Acuity / Level of Answers: No Care: Did the patient have an inpatient admission? Comorbidities - select Answers: Other Notes: Developmental all that apply delay; AFib; HTN # of Emergency department Answers: 3-4 visits in the last 6 months Score: 5 Date Signed: 04/30/2018 12:33 PM Electronically Signed By:Dyana Knight RN
--- NOTE | 2018-04-30 16:14 | PDDCSUM ---
Discharge Summary Discharge Summary: Date of Admission: 04/28/2018 Date of Discharge: 04/30/2018 Consultants: none Procedures/Studies: CTA chest, CT abd/pelvis with IV contrast Brief Hospital Course by Diagnosis: 57 yo M w/ developmental delay, HTN, hypothyroid, and multiple cardiac abnormalities (WPW, AF, congenital bicuspid AV, MVR) presented with abdominal pain after recent bout of pertussis. #Gastroenteritis: Demonstrated on CT. Symptoms are consistent with this. Likely viral in nature. Given IVF, electrolyte replacement. Tolerating PO prior to discharge. #Diarrhea: Started on day of admission and resolved within 12 hours. Suspect related to above. With leukocytosis and recent abx, there was concern for C diff colitis although CT didn't show colonic inflammation. Unfortunately, unable to obtain GI PCR. I encouraged him to not take anti-diarrheals if this recurs and to seek medical attention. #Elevated troponin: Peaked at 0.11. Patient denied chest pain. CTA chest negative for PE or aortic pathology. I suspect this represents demand ischemia from hypotension/dehydration. Recommend risk stratification with stress testing as outpatient. He is already taking aspirin. #Pertussis: Recently diagnosed and treated appropriately with azithromycin. Patient continues to have cough paroxysms but these are beginning to lessen in severity. No contact precautions necessary. Robitusfozia and Teslaila Silva PRN #Deconditioning: Related to recent illnesses. He was discharged with home health PT/RN. #Hx WPW, Atrial fibrillation: In NSR throughout admission, continued amiodarone. #Bicuspid AV, MVR: Followed by Dr. Cunningham. Stable gradients on TTE earlier in 2018. #HTN: BP controlled, continued home losartan. #Hx developmental delay, cognitive dysfunction: Caregiver at bedside and updated throughout stay. Follow Up Plan/Items for Follow Up: 1. If diarrhea recurs, recommend C diff testing 2. Recommend outpatient stress test. Last saw non emergency services ambulance driver Dr Cunningham 11/2017 who planned for 6 month f/u. Recommended to caregiver to call and schedule appointment for sooner date within next few weeks Items Pending at Discharge: none Medications at Discharge: Please refer to EMR for complete medication list. No changes during this admission. Physical Exam: Vitals reviewed and patient examined on day of discharge. He is alert with normal abdominal exam.
--- NOTE | 2018-05-01 09:05 | ASDISCHSUM ---
Discharge Information Plan Status:Home with Home Health Medically Cleared to Leave:04/30/2018 Discharge Date:04/30/2018 12:30 PM CM D/C Disposition:Home Health Service [facility] D/C Disposition:[id number] Projected Discharge Date:04/30/2018 11:00 AM Transportation at D/C:Friend Discharge Delay Reason: Follow-Up Date:04/30/2018 11:00 AM Discharge Slot: Final Diagnosis: Placement Information Referral Type:*Home Health Care Services Referral ID:[id number] Provider Name:[facility] (formerly [facility]) [address] Address 2: City:[place] Selection Factors: State:[place] Patient Contact Information Contact Name:STEVEJESSICARODO Relationship:Other Address: Work Phone: City: [facility] Phone: [facility] Code: Email: Financial Information Financial Class:Medicare Primary Plan Desc:MEDICARE OUTPATIENT Primary Plan Number:[id number] Secondary Plan Desc:MEDICAID HEALTH [place] Secondary Plan Number:[id number] Assessment Information LACE LACE Length of stay for Answers: 1 day current admission Acuity / Level of Answers: No Care: Did the patient have an inpatient admission? 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 Per pt and Steve, Estrellita Roe (pt sister) is Guardian and has MDPOA. Estrellita can be reached at [phone]. Pt lives with Steve and Arturo. Pt is enrolled in the [facility] program. Kate Lynne is the workforce development program director [phone]. Chrystal Brar RN follows pt and can be reached at [phone]. When pt is discharged please fax info to Chrystal at [phone] and have RN call report to Chrystal's cell. Pt has used [facility] in the past. Chrystal prefers using [facility] if pt requires home PT. PT eval pending. Pt PCP is Dr. Sujatha Evans. Case Management d/c poc: home resuming services provided by [facility] to follow. Date Signed: 04/29/2018 12:35 PM Electronically Signed By:Dyana Knight RN Case Management Discharge Plan Note Case Management Discharge Discharge Order Complete? Answers: Yes Patient to Obtain Answers: Other Notes: career resource specialist Steve Medications Transportation Arranged Answers: Other Notes: caregiver Steve Faxed Final Orders Answers: Yes Agency/Facility Transfer Answers: Yes Report Printed & Faxed to Receiving Agency Discharge Comments Notes: 04/30/2018 Case Management Note [facility] to provide PT and RN. Notified Steve and Tanner. Steve to transport Tanner home. Faxed final orders to Chrystal Brar RN. Date Signed: 04/30/2018 12:31 PM Electronically Signed By:Dyana Knight RN Intervention Information Intervention Type:WILKINS-Not Delivered Date of Service:04/29/2018 03:17 PM Patient Type:Observation Staff Member:Marilyn Marin Hours: Discipline: Severity: Comment:VM was left for patients' Estrellita YBARRA. #[phone]
[2018-05-03] MEDS ORDERED: TOBRAMYCIN/DEXAMETH 3.5 GM OPHT.OINT OP SCH (11:41)
== END 2018-04-30 12:30 | disposition home health service (06) ==
LOC: EDUNIT# → F2W 04:27
PROVIDERS: ADMIT Student in an Organized Health Care Education/Training Program; ATTEND Student in an Organized Health Care Education/Training Program
DX: K52.9 Noninfective gastroenteritis and colitis, unspecified (principal); R79.89 Other specified abnormal findings of blood chemistry; A37.90 Whooping cough, unspecified species without pneumonia; E86.9 Volume depletion, unspecified; I10 Essential (primary) hypertension; E03.9 Hypothyroidism, unspecified
CPT/HCPCS: 71045; 71275; 74177; 93005; 96360; 96372; 97161; 97165; 99285; G8978; G8979; G8980; G8987; G8988; G8989; J1650; Q9967; 84484-PO

== ENCOUNTER → 2018-07-08 | Outpatient (CLI) | payer OTHER, MEDICAID | LOC: BHFA 09:30 | PROVIDERS: ATTEND Internal Medicine Cardiovascular Disease | DX: I48.91 Unspecified atrial fibrillation (principal) | CPT/HCPCS: 78452; 93017; A9500; J2785 ==

== ENCOUNTER 2019-02-09 19:06 | Emergency (ER) | payer OTHER, MEDICAID ==
--- NOTE | 2019-02-09 18:58 | EDPHY ---
H & P Time Seen by Provider: 02/09/19 19:06 Constitutional: Initial Vital Signs Temperature (C) 36.8 C 02/09/19 19:09 Heart Rate 80 02/09/19 19:09 Respiratory Rate 18 02/09/19 19:09 Blood Pressure 124/76 H 02/09/19 19:09 O2 Sat (%) 95 02/09/19 19:09 O2 Delivery Mode Room Air Allergies/Adverse Reactions: No Known Allergies Allergy (Verified 02/09/19 19:09) Home Medications: Medication Instructions Recorded Amiodarone HCl [Pacerone (*)] 200 mg PO DAILY 12/12/17 Aspirin [Aspirin 81mg (*)] 81 mg PO HS 12/12/17 Cholecalciferol Vit D3 [Vitamin D3 1,000 units PO DAILY 12/12/17 (*)] Cyanocobalamin [Vitamin B12 (*)] 1,000 mcg PO HS 12/12/17 Docusate Sodium [Colace 100 MG (*)] 100 mg PO HS 12/12/17 Fluticasone Nasal [Flonase Nasal 1 sprays NASAL BID 12/12/17 [place]] Losartan Potassium [Cozaar 50 mg 50 mg PO HS 12/12/17 (*)] [place]-3 Fatty Acids [Fish Oil 1000 3,000 mg PO DAILY 12/12/17 mg (*)] Simethicone [Mylicon] 160 mg PO TIDMEAL 12/12/17 Tobramycin/Dexamethasone [Tobradex 1 lexie OP LIN 12/12/17 Eye Ointment] Levothyroxine [Synthroid 75 mcg 75 mcg PO DAILY 12/14/17 (*)] Benzonatate [Tessalon Pearles] 100 mg PO TID #12 cap 04/18/18 Albuterol [Proventil Inhaler HFA 1 - 2 puffs IH Q2-4PRN PRN 04/29/18 (*)] Bacitracin/Polymyxin B Sulfate 1 lexie TP DAILY PRN 04/29/18 [Polysporin oint (*)] Calcium Carbonate [Tums 500MG (*)] 500 - 1,000 mg PO DAILY PRN 04/29/18 Dibucaine [Nupercainal] 1 lexie RC DAILY PRN 04/29/18 Fexofenadine HCl [Ruma Allergy] 180 mg PO DAILY PRN 04/29/18 Fluoride (Sodium) [Fluoridex] 1 lexie DT HS 04/29/18 Herbals/Supplements -Info Only 1 each PO DAILY 04/29/18 Ibuprofen [Motrin (*)] 200 - 400 mg PO Q4-6PRN PRN 04/29/18 Mineral Oil/Pet Hy-Phl [Aquaphor 1 lexie TP DAILY PRN 04/29/18 Ointment (*)] Polyethylene Glycol 3350 [Miralax 17 gm PO DAILY PRN 04/29/18 17 gm (*)] Ranitidine HCl [Zantac] 150 mg PO BIDMEAL PRN 04/29/18 Sodium Cl Nasal [Crimora [place] (*)] 2 spray NS HS 04/29/18 Trolamine Salicylate [Aspercreme] 1 lexie TP DAILY PRN 04/29/18 guaiFENesin/DEXTROMETHORPHAN 5 - 10 ml PO Q4HRS PRN 04/29/18 [Robitussin Dm Oral Liquid (*)] Medical Decision Making - Diagnostics Imaging Results: Imaging Impressions Chest X-Ray 02/09/19 19:11 Impression: 1. Persistent bilateral lower lobe mucous plugging and chronic bronchitis, with left lower lobe linear scarring. 2. No definite acute pneumonia, pleural effusion, or pneumothorax. 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 The patient was at work today when he noticed that he was having heart palpitations. When he returned home he developed chest pressure and took 324mg PO Aspirin. This did not improve is symptoms. As his symptoms were still present , EMS was called. They noted that the patient was in intermittent A-fib with a LBBB. No fever, headache, body aches, lightheadedness, shortness of breath, cough, abdominal pain, urinary or bowel complaints, numbness, paresthesias. REVIEW OF SYSTEMS: A comprehensive 10 system review of systems is otherwise negative aside from elements mentioned in the history of present illness and medical decision making. PHYSICAL EXAM: HR, BP, O2 Sat, RR. Temp noted General Appearance: Developmentally delayed, alert, well hydrated, appropriate , and non-toxic appearing. Head: Atraumatic without scalp tenderness or obvious injury Eyes: Pupils equal, round, reactive to light and accommodation, EOMI, no trauma , no injection. Ears: Clear bilaterally, no perforation, normal landmarks Nose: Atraumatic, no rhinorrhea, clear. Throat: There is no erythema or exudates, no lesions, normal tonsils, mucus membranes moist. Neck: Supple, 2+ carotid upstroke, nontender, no lymphadenopathy. Respiratory: No retractions, no distress, no wheezes, and no accessory muscle use. Lungs are clear to auscultation bilaterally. Cardiovascular: Intermittent a-fib, no murmurs, rubs, or gallops. Bilateral carotid, radial, dorsalis pedis, and posterior tibial pulses intact. Good capillary refill all extremities. Gastrointestinal: Abdomen is soft, nontender, non-distended, no masses, no rebound, no guarding, no peritoneal signs. Musculoskeletal: Normal active ROM of all extremities, atraumatic. Neurological: Alert, appropriate, and interactive. The patient has normal DTRs and non-focal cranial nerves, motor, sensory, and cerebellar exam. Skin: No rashes, good turgor, no nodules on palpation. 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 No signs of ischemia. See hard copy and /or "tracemaster" electronic copy for interpretation. Chest x-ray: Persistent bilateral lower lobe mucous plugging and chronic bronchitis, with left lower lobe linear scarring. DIFFERENTIAL DIAGNOSIS: The differential diagnosis for the patient's chest pain included but was not limited to myocardial ischemia, pulmonary embolus, chest wall pain, pleural inflammation, and pulmonary infectious causes. The differential diagnosis for the patient's narrow complex tachycardia included but was not limited to various causes of sinus tachycardia such as dehydration and medicines, SVT, atrial flutter, atrial fibrillation, pulmonary causes. 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 He took 324mg PO Aspirin, which did not improve is symptoms. EMS noted that the patient was in intermittent A-fib with a LBBB. He has a normal physical exam besides intermittently being in a-fib. Labs (including Magnesium), EKG, and chest x-ray ordered. 1904: I met EMS upon arrival. 1907: I interpreted patient's EKG as as atrial flutter with a ventricular rate of 100, LVH, and PVC's. 60mg SC Lovenox administered as patient is not anticoagulated. Patient will also need to be admitted for this. 1949: I reviewed patient's labs and x-ray. I will page the hospitalist and poultryman to admit and consult on this patient respectively. 1954: I consulted with the hospitalist service, Dr. Gonzalez, regarding this patient. This patient has a Nolan Vas score of 1. 1955: I consulted with the Dr. Courtney, poultryman, regarding this patient. This patient will need to follow up as an outpatient with cardiology. This patient does not need rate control or anticoagulants. 2002: Reassessed patient and discussed laboratory and imaging findings. He no longer has chest pain and is rate-controlled. Patient and his caregiver are comfortable with plan for discharge home with plan to follow up as an outpatient with the poultryman. Return precautions provided. - Data Points Laboratory Results: Laboratory Results 02/09/19 19:33 02/09/19 19:47 02/09/19 02/09/19 02/09/19 19:47 19:33 19:16 WBC 6.59 10^3/uL 10^3/uL (3.80-9.50) RBC 4.78 10^6/uL 10^6/uL (4.40-6.38) Hgb 15.6 g/dL g/dL (13.7-17.5) Hct 46.4 % % (40.0-51.0) MCV 97.1 fL fL (81.5-99.8) MCH 32.6 pg pg (27.9-34.1) MCHC 33.6 g/dL g/dL (32.4-36.7) RDW 12.8 % % (11.5-15.2) Plt Count 223 10^3/uL 10^3/uL (150-400) MPV 10.7 fL fL (8.7-11.7) Neut % (Auto) 63.7 % % (39.3-74.2) Lymph % (Auto) 21.1 % % (15.0-45.0) [place] % (Auto) 10.9 % % (4.5-13.0) Eos % (Auto) 2.9 % % (0.6-7.6) Baso % (Auto) 1.1 % % (0.3-1.7) Nucleat RBC Rel Count 0.0 % % (0.0-0.2) Absolute Neuts (auto) 4.20 10^3/uL 10^3/uL (1.70-6.50) Absolute Lymphs (auto) 1.39 10^3/uL 10^3/uL (1.00-3.00) Absolute Monos (auto) 0.72 10^3/uL 10^3/uL (0.30-0.80) Absolute Eos (auto) 0.19 10^3/uL 10^3/uL (0.03-0.40) Absolute Basos (auto) 0.07 10^3/uL 10^3/uL (0.02-0.10) Absolute Nucleated RBC 0.00 10^3/uL 10^3/uL (0-0.01) Immature Gran % 0.3 % % (0.0-1.1) Immature Gran # 0.02 10^3/uL 10^3/uL (0.00-0.10) Sodium 139 mEq/L mEq/L (135-145) Potassium 4.0 mEq/L mEq/L (3.5-5.2) Chloride 102 mEq/L mEq/L (97-110) Carbon Dioxide 28 mEq/l mEq/l (22-31) Anion Gap 9 mEq/L mEq/L (6-14) BUN 22 mg/dL mg/dL (7-23) Creatinine 1.2 mg/dL mg/dL (0.7-1.3) Estimated GFR > 60 Glucose 97 mg/dL mg/dL (70-100) Calcium 9.0 mg/dL mg/dL (8.5-10.4) Magnesium 2.0 mg/dL mg/dL (1.6-2.3) POC Troponin I 0.01 ng/mL ng/mL (0.00-0.08) NT-Pro-B Natriuret Pep Pending Medications Given: Discontinued Medications Enoxaparin Sodium (Lovenox) 60 mg SC EDNOW ONE Stop: 02/09/19 19:19 Last Admin: 02/09/19 19:45 Dose: 60 mg Point of Care Test Results: Chemistry 02/09/19 19:16 POC Troponin I 0.01 ng/mL ng/mL (0.00-0.08) Departure - Departure Disposition: Home, Routine, Self-Care Clinical Impression: PVC (premature ventricular contraction) Atrial fibrillation Qualifiers: Atrial fibrillation type: unspecified Qualified Code(s): I48.91 - Unspecified atrial fibrillation Chest pain Qualifiers: Chest pain type: other chest pain Qualified Code(s): R07.89 - Other chest pain Condition: Good
[2019-02-09] MEDS ORDERED: ENOXAPARIN 60 MG/0.6 ML SYR SC ONE (19:18)
--- NOTE | 2019-02-09 19:19 | CPEKG ---
Test Reason : OPEN Blood Pressure : / mmHG Vent. Rate : 095 BPM Atrial Rate : 112 BPM P-R Int : 103 ms QRS Dur : 112 ms QT Int : 443 ms P-R-T Axes : 000 -49 090 degrees QTc Int : 557 ms Atrial flutter with predominant 2:1 AV block LAD, consider left anterior fascicular block LVH with secondary repolarization abnormality Prolonged QT interval Confirmed by Zion Payan ([id number]) on 02/09/2019 7:18:37 PM Referred By: Zion Payan Confirmed By:Zion Payan
[2019-02-09 19:42] LABS: PLATELET COUNT 223 10^3/uL (150-400)
[2019-02-09 20:09] VITALS: BP 108/73
--- NOTE | 2019-02-15 13:27 | CPEKG ---
Test Reason : OPEN Blood Pressure : / mmHG Vent. Rate : 115 BPM Atrial Rate : 124 BPM P-R Int : 110 ms QRS Dur : 113 ms QT Int : 000 ms P-R-T Axes : 264 -48 100 degrees QTc Int : 000 ms Atrial fibrillation LAD, consider left anterior fascicular block Left ventricular hypertrophy Nonspecific T abnormalities, lateral leads Confirmed by Marc Duque ([id number]) on 02/15/2019 1:27:06 PM Referred By: Zion Payan Confirmed By:Marc Duque
== END 2019-02-09 20:17 | disposition home or self-care (01) ==
LOC: EDUNIT# → UNDOADMOB 19:50
DX: I49.3 Ventricular premature depolarization (principal); I48.91 Unspecified atrial fibrillation; J42 Unspecified chronic bronchitis; R07.89 Other chest pain
CPT/HCPCS: 71046; 93005; 96372; 99285; J1650; 84484-ER

== ENCOUNTER → 2019-02-15 | Outpatient (CLI) | payer OTHER, MEDICAID | LOC: BHFA 09:15 | PROVIDERS: ATTEND Internal Medicine Cardiovascular Disease | DX: I48.91 Unspecified atrial fibrillation (principal); Q23.1 Congenital insufficiency of aortic valve ==